=== PATIENT | female | born 1995 | race African-American/Black ===

== ENCOUNTER → 2017-02-12 | Outpatient (CLI) | payer OTHER ==
[2016-02-20 16:41] VITALS: BP 115/85
[~2017-02-12] MED LIST: HYDR-2758 PO; IBUP200T44 PO; METO-239 PO; NAPR-685 PO; OMEP20CA5 PO; ONDA4TAB10 PO; PRED50TA PO; [UNRECOGNIZED DRUG - OTHER] IM/IV
--- NOTE | 2017-02-12 10:43 | RAD ---
Indication: Knee pain. Technique: 2 views of the right knee are submitted for review. No comparison is available. Findings: There is no fracture or dislocation. There is no joint effusion. There is no compartmental narrowing. There is minimal spurring in the medial tibial plateau. Impression: Minimal degenerative spurring from the medial tibial plateau.
== END | disposition home or self-care (01) ==
LOC: RAD 09:57
PROVIDERS: ATTEND Surgery
DX: M25.862 Other specified joint disorders, left knee (principal); F32.9 Major depressive disorder, single episode, unspecified; F41.9 Anxiety disorder, unspecified; D89.89 Other specified disorders involving the immune mechanism, not elsewhere classified; F43.10 Post-traumatic stress disorder, unspecified; X58.XXXA Exposure to other specified factors, initial encounter; Y93.89 Activity, other specified; Y92.89 Other specified places as the place of occurrence of the external cause; Y99.8 Other external cause status
CPT/HCPCS: 73560